=== PATIENT | female | born 1995 | race African-American/Black ===

== ENCOUNTER 2018-03-28 20:30 | Emergency (ER) | payer OTHER, SELFPAY ==
[2018-03-28] MEDS ORDERED: Ondansetron ODT 4 MG TAB ONE (20:59)
[2018-03-28] MEDS ORDERED: Diphenoxylate HCl/Atropine Tablet ONE (20:59)
[2018-03-28 21:18] LABS: Bilirubin Negative (Negative); Blood, Urine Negative (Negative); Clarity Slightly Cloudy (Clear); Glucose, Urine (Dipstick) Negative (Negative); Leukocyte Trace (Negative); Nitrite Negative (Negative); Protein, Urine (Dipstick) Trace mg/dL (Neg-Trace); Specific Gravity, Urine 1.025 (1.005-1.030)
[2018-03-28 21:22] LABS: Pregnancy Test - Urine (BHCG) Negative (Negative); Pregu Control Background? CLEAR/WHITE (CLR/WHITE); Pregu Control Bar Appear? YES (CONTROL BAR); Specific Gravity 1.025 (1.002-1.036)
[2018-03-28 21:23] LABS: Bacteria/HPF 2+ HPF (None Seen); RBC/HPF 0-3 HPF (0-3)
[2018-03-28] MEDS ORDERED: Sulfameth/Trimethoprim DS 800-160mg TAB ONE (21:54)
== END 2018-03-28 21:59 | disposition home or self-care (01) ==
LOC: MADERS 20:30
DX: N39.0 Urinary tract infection, site not specified (principal)
CPT/HCPCS: 81001; 81025; 87086; 99284; Q0162

== ENCOUNTER 2018-06-01 22:49 | Emergency (ER) | payer OTHER, SELFPAY ==
[2018-06-01] MEDS ORDERED: Acetaminophen 500 MG TAB ONE (23:35)
[2018-06-01] MEDS ORDERED: Ibuprofen 800 MG TAB ONE (23:35)
--- NOTE | 2018-06-01 23:35 | RAD ---
RIGHT SHOULDER THREE VIEWS: INDICATIONS: Pain. Injury. FINDINGS: There is no fracture or dislocation of the right shoulder. IMPRESSION: No acute osseous abnormality, right shoulder. POS: [facility]
--- NOTE | 2018-06-01 23:37 | RAD ---
RIGHT WRIST THREE VIEWS: INDICATIONS: Injury with pain. FINDINGS: No fracture or dislocation of the right wrist. No significant soft tissue abnormality. IMPRESSION: No acute osseous abnormality of the right wrist. POS: [facility]
--- NOTE | 2018-06-01 23:40 | RAD ---
RIGHT HAND THREE VIEWS: INDICATIONS: Injury. Pain of right hand. FINDINGS: No fracture or dislocation. No significant soft tissue pathology. IMPRESSION: No acute osseous abnormality of the right hand. POS: [facility]
== END 2018-06-01 23:49 | disposition home or self-care (01) ==
LOC: MADERS 22:49
DX: S63.501A Unspecified sprain of right wrist, initial encounter (principal); V43.62XA Car passenger injured in collision with other type car in traffic accident, initial encounter

== ENCOUNTER 2018-10-16 12:00 | Emergency (ER) | payer MEDICAID, OTHER, SELFPAY | END 2018-10-16 12:50 | disposition home or self-care (01) | LOC: MADERS 12:00 | DX: J11.1 Influenza due to unidentified influenza virus with other respiratory manifestations (principal) | CPT/HCPCS: 99281 ==

== ENCOUNTER 2019-02-04 10:45 | Emergency (ER) | payer MEDICAID, SELFPAY | END 2019-02-04 11:06 | disposition home or self-care (01) | LOC: MADERS 10:45 | DX: R19.7 Diarrhea, unspecified (principal) | CPT/HCPCS: 99281 ==

== ENCOUNTER 2019-07-27 08:08 | Emergency (ER) | payer SELFPAY | END 2019-07-27 08:34 | disposition home or self-care (01) | LOC: MADERS 08:08 | DX: K04.7 Periapical abscess without sinus (principal); K02.9 Dental caries, unspecified | CPT/HCPCS: 99281 ==

== ENCOUNTER 2023-11-01 08:19 | Emergency (ER) | payer OTHER, SELFPAY | END 2023-11-01 09:00 | disposition home or self-care (01) | LOC: MADERS 08:19 | DX: U07.1 COVID-19 (principal) | CPT/HCPCS: 99283 ==

== ENCOUNTER 2024-03-31 14:28 | Emergency (ER) | payer SELFPAY ==
[2024-03-31 15:36] LABS: Bilirubin Negative (Negative); Blood, Urine Moderate (Negative); Clarity Clear (Clear); Glucose, Urine (Dipstick) Negative (Negative); Ketone, Urine Negative (Negative); Leukocyte Negative (Negative); Nitrite Negative (Negative); Protein, Urine (Dipstick) Negative (Neg-Trace); Urobilinogen 0.2 mg/dL (Less than 2)
[2024-03-31 15:39] LABS: Pregnancy Test - Urine (BHCG) Negative (Negative); Pregu Control Background? CLEAR/WHITE (CLR/WHITE); Pregu Control Bar Appear? YES (CONTROL BAR)
[2024-03-31 15:43] LABS: Bacteria/HPF Rare-Few HPF (None Seen); CAUTI Indications for Culture Pelvic or flank pain; Mucous/LPF 2+ LPF (<2+); Squamous Epithelial 0-3 HPF (0-3); Urine Culture Reflex No No; WBC/HPF None Seen HPF (0-3)
== END 2024-03-31 16:03 | disposition home or self-care (01) ==
LOC: MADERS 14:28
DX: N93.8 Other specified abnormal uterine and vaginal bleeding (principal)
CPT/HCPCS: 81001; 81025; 99284

== ENCOUNTER 2024-07-06 14:33 | Emergency (ER) | payer SELFPAY, OTHER ==
[2024-07-06] MEDS ORDERED: Ibuprofen 600 MG TAB ONE (16:07)
[2024-07-06] MEDS ORDERED: Lidocaine 4% Patch ONE (16:10)
== END 2024-07-06 16:31 | disposition home or self-care (01) ==
LOC: MADERS 14:33
DX: M62.830 Muscle spasm of back (principal)
CPT/HCPCS: 99283